=== PATIENT | female | born 1955 | race Two or more races ===

== ENCOUNTER 2016-12-29 22:38 | Emergency (ER) | payer OTHER ==
[~2016-12-29] VITALS: Ht 157.5 cm; Wt 61.7 kg
[~2016-12-29 22:38] MED LIST: ETOMIDATE 20 MG/10 ML ONE; MIDAZOLAM 1 MG/ML, 5ML ONE; SUCCINYLCHOLINE 20 MG/ML, 10ML ONE
[2016-12-29] MEDS ORDERED: LORazepam 2 MG/ML, 1ML ONE (22:41)
[2016-12-29 22:56] LABS: HEMOGLOBIN 14.7 g/dL (11.7-16.4)
[2016-12-29 23:10] LABS: ACETAMINOPHEN < 2 mcg/mL (10-30)
[2016-12-29 23:11] LABS: DIFF TOTAL CELLS COUNTED 100 CELL DIFF
[2016-12-29 23:13] LABS: IS PT STATUS REG ER OR PRE ER? YES
[2016-12-29 23:14] LABS: VERIFY COUNTS? YES
[2016-12-29 23:16] LABS: HYPOCHROMIA 1+
[2016-12-29] MEDS ORDERED: PROPOFOL 100 ML IV ONE (23:29)
[2016-12-29] MEDS ORDERED: PROPOFOL 100 ML IV PRN (23:30)
[2016-12-30 00:16] VITALS: BP 139/56
[2016-12-30] MEDS ORDERED: LORazepam 2 MG/ML, 1ML IVPush ONE (00:30)
[2016-12-30] MEDS ORDERED: MIDAZOLAM 1 MG/ML, 5ML IVPush ONE (00:30)
[2016-12-30] MEDS ORDERED: ETOMIDATE 20 MG/10 ML IVPush ONE (00:30)
[2016-12-30] MEDS ORDERED: SUCCINYLCHOLINE 20 MG/ML, 10ML IVPush ONE (00:30)
== END 2016-12-30 00:01 | disposition short-term general hospital (02) ==
LOC: ED 22:48
DX: I60.4 Nontraumatic subarachnoid hemorrhage from basilar artery (principal); Q28.2 Arteriovenous malformation of cerebral vessels; R40.20 Unspecified coma; I10 Essential (primary) hypertension
CPT/HCPCS: 31500; 36415; 70450; 71010; 80307; 80329; 82962; 84484; 85025; 85610; 85730; 93005; 94002; 94003; 96374; 96375; 99291; J0330; J2060; J2250; J2704; G0480

== ENCOUNTER 2018-08-22 09:01 | Day surgery (SDC) | payer OTHER ==
[2018-08-20 15:57] LABS: ALANINE AMINOTRANSFERASE 63 U/L (12-78); ALBUMIN 3.9 g/dL (3.4-5.0); ANION GAP 8 mmol/L (5-15); CALCIUM 8.9 mg/dL (8.5-10.1); CHLORIDE 110 mmol/L (98-107)
[2018-08-20 16:00] LABS: ALKALINE PHOSPHATASE 115 U/L (45-117); BILIRUBIN,TOTAL 0.2 mg/dL (0.2-1.0); TOTAL PROTEIN 7.3 g/dL (6.4-8.2)
[~2018-08-22] VITALS: Ht 152.4 cm; Wt 50.0 kg
[~2018-08-22 09:01] MED LIST changes: +ASPI-496 PO; +ATOR40TA78 PO; +BUTA-177 PO; +DULO30CA2 PO; -ETOMIDATE 20 MG/10 ML ONE; +FAMO40TA61 PO; +GABA300C10 PO; +LEVE10007 PO; +METF500T17 PO; -MIDAZOLAM 1 MG/ML, 5ML ONE; +NITR100C PO; +OMEP20TA62 PO; +PHEN-583 PO; -SUCCINYLCHOLINE 20 MG/ML, 10ML ONE; +ZONI100C2 PO
[2018-08-22] MEDS ORDERED: LACTATED RINGERS 1,000 ML IV SCH ×2 (09:17→11:20)
[2018-08-22 09:56] VITALS: BP 111/74
[2018-08-22] MEDS ORDERED: ONDANSETRON 2MG/ML, 2ML IV PRN (12:30)
[2018-08-22] MEDS ORDERED: ONDANSETRON ODT 8 MG PO PRN (12:30)
[2018-08-22] MEDS ORDERED: hydrALAzine 20 MG/ML, 1ML IV PRN (12:30)
[2018-08-22] MEDS ORDERED: ACETAMINOPHEN 325 MG TABLET PO PRN (12:30)
[2018-08-22] MEDS ORDERED: OXYcodone 5 MG/5 ML ORAL.SOL UDC PO PRN (12:30)
[2018-08-22] MEDS ORDERED: LABETALOL 5MG/ML, 20ML IV PRN (12:30)
[2018-08-22] MEDS ORDERED: FENTANYL PF 100 MCG/2ML IV PRN (12:30)
[2018-08-22] MEDS ORDERED: FENTANYL PF 100 MCG/2ML ONE (13:17)
[2018-08-22] MEDS ORDERED: PROPOFOL 10 MG/ML, 20ML ONE (14:39)
== END 2018-08-22 14:30 | disposition home or self-care (01) ==
LOC: OUT 09:01
PROVIDERS: ATTEND Internal Medicine
DX: K59.00 Constipation, unspecified (principal); R10.31 Right lower quadrant pain; R13.10 Dysphagia, unspecified; I10 Essential (primary) hypertension; E11.9 Type 2 diabetes mellitus without complications; G40.409 Other generalized epilepsy and epileptic syndromes, not intractable, without status epilepticus; Z86.73 Personal history of transient ischemic attack (TIA), and cerebral infarction without residual deficits; F11.20 Opioid dependence, uncomplicated; G89.29 Other chronic pain; Z79.899 Other long term (current) drug therapy; Z79.84 Long term (current) use of oral hypoglycemic drugs
CPT/HCPCS: 36415; 43248; 45378; 80053; 82962; 93005; J2704; J3010; J7120

== ENCOUNTER 2021-01-17 14:32 | Outpatient (CLI) | payer MEDICARE ==
[~2021-01-17 14:32] MED LIST changes: -ZONI100C2 PO; +ZONI100C29 PO
== END 2021-01-17 23:59 | disposition home or self-care (01) ==
LOC: RAD 14:32
PROVIDERS: ATTEND Family Medicine
DX: M79.605 Pain in left leg (principal); M79.604 Pain in right leg; R05 Cough; I51.7 Cardiomegaly
CPT/HCPCS: 71046; 93970